=== PATIENT | male | born 1955 | race Caucasian/White ===

== ENCOUNTER 2017-01-17 09:07 | Day surgery (SDC) | payer OTHER ==
[2017-01-10 09:53] LABS: ABSOLUTE EOSINOPHILS # (AUTO) 0.1 10^3/uL (0.0-0.6); ABSOLUTE MONOCYTES (AUTO) 0.6 10^3/uL (0.1-1.4); ABSOLUTE NEUT (AUTO) 3.6 10^3/uL (1.7-8.2); BASOPHILS % (AUTO) 0.7 % (0-2); EOSINOPHILS % (AUTO) 2.3 % (0-6); HEMATOCRIT 35.3 % (37.9-51.0); HEMOGLOBIN 12.2 g/dL (13.5-17.0); HGB HCT DIFFERENCE 1.3; MEAN CORPUSCULAR HEMOGLOBIN 32.1 pg (27.0-33.4); MEAN CORPUSCULAR HGB CONC 34.5 g/dL (32.0-36.0); MEAN CORPUSCULAR VOLUME 93 fl (80-97); MONOCYTES % (AUTO) 11.4 % (3-13); SEGMENTED NEUTROPHILS % (AUTO) 67.6 % (42-78); WHITE BLOOD COUNT 5.4 10^3/uL (4.0-10.5)
[2017-01-10 10:20] LABS: APPEARANCE,URINE SLIGHTLY-CLOUDY; BILIRUBIN,URINE NEGATIVE (NEGATIVE); GLUCOSE, URINE NEGATIVE (NEGATIVE); KETONES,URINE NEGATIVE (NEGATIVE); LEUKOCYTE ESTERASE,URINE TRACE (NEGATIVE); NITRITE,URINE NEGATIVE (NEGATIVE); PROTEIN,URINE NEGATIVE (NEGATIVE); URINE SPECIFIC GRAVITY 1.006; UROBILINOGEN,URINE NEGATIVE mg/dL (<2.0)
[2017-01-10 10:21] LABS: ANION GAP 12 (5-19); BLOOD UREA NITROGEN 4 mg/dL (7-20); CALCIUM 9.4 mg/dL (8.4-10.2); CARBON DIOXIDE 26 mmol/L (22-30); CHLORIDE 89 mmol/L (98-107); CREATININE RESULT 0.62 mg/dL (0.52-1.25); GLUCOSE 80 mg/dL (75-110); POTASSIUM 4.2 mmol/L (3.6-5.0); SODIUM 126.6 mmol/L (137-145)
--- NOTE | 2017-01-10 10:26 | EKG REPORT ---
SEVERITY:- BORDERLINE ECG - SINUS RHYTHM BORDERLINE RIGHT AXIS DEVIATION BORDERLINE INFERIOR Q WAVES BORDERLINE PROLONGED QT INTERVAL BLOCKED APC : Confirmed by: Tri Boudreaux 10-Jan-2017 10:26:17
--- NOTE | 2017-01-10 10:37 | RADIOLOGY REPORT (SQ) ---
EXAM DESCRIPTION: CHEST PA/LATERAL COMPLETED DATE/TIME: 01/10/2017 9:50 am REASON FOR STUDY: PRE-OP COMPARISON: 04/05/2015 EXAM PARAMETERS: NUMBER OF VIEWS: two views TECHNIQUE: Digital Frontal and Lateral radiographic views of the chest acquired. RADIATION DOSE: NA LIMITATIONS: none FINDINGS: LUNGS AND PLEURA: The lungs are hyperexpanded. There are no pulmonary infiltrates or pleu ral effusions. No mass is seen. MEDIASTINUM AND HILAR STRUCTURES: No masses or contour abnormalities. HEART AND VASCULAR STRUCTURES: Heart normal size. No evidence for failure. BONES: No acute findings. HARDWARE: None in the chest. OTHER: No other significant finding. IMPRESSION: Chronic lung changes with no acute cardiopulmonary disease. TECHNICAL DOCUMENTATION: JOB ID: [id number] [employer]- All Rights Reserved
[~2017-01-17 09:07] MED LIST: CEFAZOLIN 2 GM/D5W RTU 2 GM/50 ML RTUPB IV PRN; LIDOCAINE 0.5% INJ-PF (5 MG/ML) 50 ML SDV INJ PRN; RINGERS SOLUTION,LACTATED 1,000 ML IV PRN
[2017-01-17] MEDS ORDERED: GLYCOPYRROLATE INJ 0.4 MG/2 ML VIAL ONE (09:11)
[2017-01-17] MEDS ORDERED: DEXAMETHASONE SOD PHOSPHATE INJ 4 MG/1 ML VIAL ONE (09:11)
[2017-01-17] MEDS ORDERED: METOCLOPRAMIDE HCL INJ/PF 10 MG/2 ML SDV ONE (09:11)
[2017-01-17] MEDS ORDERED: ONDANSETRON HCL INJ/PF 4 MG/2 ML SDV ONE (09:11)
[2017-01-17] MEDS ORDERED: FENTANYL CITRATE INJ/PF 100 MCG/2 ML AMPUL ONE (10:41)
[2017-01-17] MEDS ORDERED: MIDAZOLAM 2 MG/2 ML INJ ONE (10:41)
[2017-01-17] MEDS ORDERED: ALBUTEROL SULFATE HFA (90 MCG/PUFF) 200 PUFF/8.5 GM MDI IH ONE (10:41)
[2017-01-17] MEDS ORDERED: HYDROMORPHONE HCL INJ/PF 2 MG/ML AMPULE ONE (10:42)
[2017-01-17] MEDS ORDERED: PROPOFOL INJ 200 MG/20 ML VIAL IV ONE (10:42)
[2017-01-17] MEDS ORDERED: ACETAMINOPHEN 100 ML IV ONE (10:43)
[2017-01-17] MEDS ORDERED: MORPHINE SULFATE 10 MG/ML INJ IV PRN (11:53)
[2017-01-17] MEDS ORDERED: DIPHENHYDRAMINE HCL 50 MG/ML VIAL IV PRN (11:53)
[2017-01-17] MEDS ORDERED: PROMETHAZINE HCL INJ 25 MG/1 ML VIAL IV PRN ×2 (11:53)
[2017-01-17] MEDS ORDERED: MEPERIDINE HCL/PF INJ 25 MG/1 ML DISP.SYRIN IV PRN (11:53)
[2017-01-17] MEDS ORDERED: FENTANYL CITRATE INJ/PF 100 MCG/2 ML AMPUL IV PRN ×3 (11:53)
[2017-01-17] MEDS ORDERED: OXYCODONE-ACETAMINOPHEN 5-325 MG TABLET PO PRN ×2 (11:53)
--- NOTE | 2017-01-17 13:05 | Operative Report ---
Operative Report DATE OF SURGERY: 01/17/17 PREOPERATIVE DIAGNOSIS: Posttraumatic left ankle arthritis OPERATION: Hardware removal. Left pantalar fusion SURGEON: SHAUN SAUNDERS 1ST LOOM STOP CHECKER: LU RODRIGUEZ ANESTHESIA: GA TISSUE REMOVED OR ALTERED: Cultures to microbiology. Bone to pathology. Implants to patient ESTIMATED BLOOD LOSS: Minimal PROCEDURE: With the patient's finding of the operating room table the left lower extremities prepped and draped in sterile fashion. Limb was elevated for exsanguination tourniquet inflated to 350 torr. A longitudinal incision is made over the distal fibula. Sharp dissection was carried incision down to the subperiosteal region. The underlying plate is identified and removed along with 5 screws. A distal fibular osteotomy was performed and this is reflected posteriorly. This reveals the underlying tibiotalar joint. This is resected using oscillating saw. The joint is distracted with lamina spreaders and the corresponding surfaces inspected for alignment as well as congruity. Subsequently a pin is placed through the plantar surface the foot through the talus and into the distal tibia. The distal tibia was then reamed to 11.5 mm. Subsequently a [email or web address] pantalar fusion nail 11 x 150 mm was advanced over the guide chapo. The guide chapo is removed. A talar locking screw was placed followed by 2 distal tibia screws. The tibiotalar joint is then compressed through the end of the nail. Subsequently to calcaneal screw screws were placed one posteriorly and one laterally. At this point the decision was made about the distal fibula. Normally I would use this as an onlay graft and this point because of the poor condition of the bone I felt it was probably better excised. The distal fibula was excised. The tourniquet was deflated. The wound was Secured with bulb lavage. Wound is then closed in layers using interrupted Vicryl followed by nylon. A sterile compressive dressing followed by posterior splint were applied and the patient's return to the PACU in satisfactory condition.
[2017-01-17] MEDS: FENTANYL CITRATE INJ/PF 100 MCG/2 ML AMPUL ONE ×2 (13:22→13:27)
[2017-01-17] MEDS ORDERED: RINGERS SOLUTION,LACTATED 1,000 ML IV PRN (13:30)
[2017-01-17] MEDS: MORPHINE SULFATE 10 MG/ML INJ ONE ×3 (13:33→13:47)
[2017-01-17] MEDS ORDERED: ONDANSETRON 4 MG TAB.RAPDIS SL PRN (13:37)
[2017-01-17] MEDS ORDERED: ZOLPIDEM TARTRATE 5 MG TABLET PO PRN (13:38)
[2017-01-17] MEDS ORDERED: CEFAZOLIN 1 GM/D5W RTU 1 GM/50 ML RTUPB IV SCH (14:00)
[2017-01-17] MEDS ORDERED: TIOTROPIUM BROMIDE DPI 5 CAP/KIT (18 MCG/CAP) IH PRN (14:56)
[2017-01-17] MEDS: CEFAZOLIN 2 GM/D5W RTU 2 GM/50 ML RTUPB IV SCH (18:35)
[2017-01-17] MEDS: OXYCODONE HCL IR 5 MG TABLET PO PRN ×2 (18:37→23:53)
[2017-01-17] MEDS: MORPHINE SULFATE 10 MG/ML INJ IV PRN (22:14)
[2017-01-18] MEDS: CEFAZOLIN 2 GM/D5W RTU 2 GM/50 ML RTUPB IV SCH (01:20)
[2017-01-18] MEDS: MORPHINE SULFATE 10 MG/ML INJ IV PRN (01:20)
[2017-01-18] MEDS: OXYCODONE HCL IR 5 MG TABLET PO PRN (05:53)
--- NOTE | 2017-01-18 07:18 | PDOC DISCHARGE SUMMARY ---
General - Admit/Disc Date/PCP Discharge Date: 01/18/17 - Discharge Diagnosis (1) Arthritis of left ankle Is this a current diagnosis for this admission?: Yes - Additional Information Discharge Diet: As Tolerated, Regular Discharge Activity: Balance Activity w/Rest, Other - Touchdown weightbearing restriction left lower extremity Home Medications: Ibuprofen [Motrin 400 mg Tablet] 400 mg PO PRN PRN 01/10/17 Tiotropium [place] [Spiriva Handihaler 18 mcg/dose (30 Dose)] 18 mcg IH PRN PRN 01/10/17 Oxycodone HCl [Oxy-Ir 5 mg Tablet] 5 mg PO Q6HP PRN tablet 01/18/17 History of Present Illness History of Present Illness: KAYLEE DIANA is a 61 year old male status post an open reduction internal fixation of a bimalleolar left ankle fracture in the distant past now with progressive pain and functional disability. Patient admitted for a left ankle arthrodesis. Hospital Course Hospital Course: Patient is admitted through the operating room for 23 hour outpatient observation. He undergoes uncomplicated left ankle arthrodesis. Is returned to the floor in satisfactory condition. He spends the night in the hospital for pain control and is subsequently for discharge home on a touchdown weightbearing restriction on the left lower extremity. Physical Exam Vital Signs: Temp Pulse Resp BP Pulse Ox 36.8 C 84 16 166/79 H 99 01/18/17 03:46 01/18/17 03:46 01/18/17 03:46 01/18/17 03:46 01/18/17 03:46 Intake & Output 01/17/17 01/18/17 01/19/17 06:59 06:59 06:59 Intake Total 2225 Output Total 450 Balance 1775 Weight 68.4 kg General appearance: PRESENT: no acute distress Head exam: PRESENT: normocephalic Respiratory exam: PRESENT: unlabored Cardiovascular exam: PRESENT: RRR Vascular exam: PRESENT: normal capillary refill GI/Abdominal exam: PRESENT: soft Rectal exam: PRESENT: deferred Extremities exam: PRESENT: other - Left lower extremity immobilized in a posterior splint. Small amount of bloody drainage from the back of the splint which is dry this morning. Neurological exam: PRESENT: alert, awake, oriented to person, oriented to place , oriented to time, oriented to situation. ABSENT: motor sensory deficit Psychiatric exam: PRESENT: appropriate affect, normal mood. ABSENT: homicidal ideation, suicidal ideation Skin exam: PRESENT: dry, intact, warm. ABSENT: cyanosis, rash Results Laboratory Results: 01/10/17 08:45 01/10/17 08:45 Impressions: Chest X-Ray 01/10/17 09:45 IMPRESSION: Chronic lung changes with no acute cardiopulmonary disease. Status: Imported from PACS Plan Discharge Plan: 61-year-old white male status post left ankle arthrodesis with an unknown eventful postoperative course. He is can maintain a touchdown weightbearing restriction return to see Dr. Hong in the [facility] for surgery in 2 weeks for splint removal and suture removal.
[2017-01-18 09:30] VITALS: BP 105/86
[2017-01-18] MEDS ORDERED: TIOTROPIUM BROMIDE DPI 5 CAP/KIT (18 MCG/CAP) IH SCH (10:00)
--- NOTE | 2017-01-19 02:11 | RADIOLOGY REPORT (SQ) ---
EXAM DESCRIPTION: NO CHG FLUORO; ANKLE LEFT AP/LATERAL COMPLETED DATE/TIME: 01/17/2017 2:14 pm REASON FOR STUDY: LEFT ANKLE FUSION ASSISTED WITH FLUORO IN OR COMPARISON: 07/29/2012 FLUOROSCOPY TIME: 0.8 minutes 10 Images saved to PACS RADIATION DOSE: 3.59 mGy LIMITATIONS: None. PROCEDURE: Ankle fusion. FINDINGS: Images obtained from fluoro document the placement of a rind through the calcaneus and joshua us into distal tibia. The tibial talar articular surfaces have been debrided. 3 screws are present in the medial malleolus apparently from a prior injury. IMPRESSION: Left ankle fusion. COMMENT: PQRS 6045F: Fluoroscopy time of the procedure is documented in the report. TECHNICAL DOCUMENTATION: JOB ID: [id number] [employer] All Rights Reserved
--- NOTE | 2017-01-19 02:11 | RADIOLOGY REPORT (SQ) ---
EXAM DESCRIPTION: NO CHG FLUORO; ANKLE LEFT AP/LATERAL COMPLETED DATE/TIME: 01/17/2017 2:14 pm REASON FOR STUDY: LEFT ANKLE FUSION ASSISTED WITH FLUORO IN OR COMPARISON: 07/29/2012 FLUOROSCOPY TIME: 0.8 minutes 10 Images saved to PACS RADIATION DOSE: 3.59 mGy LIMITATIONS: None. PROCEDURE: Ankle fusion. FINDINGS: Images obtained from fluoro document the placement of a rind through the calcaneus and joshua us into distal tibia. The tibial talar articular surfaces have been debrided. 3 screws are present in the medial malleolus apparently from a prior injury. IMPRESSION: Left ankle fusion. COMMENT: PQRS 6045F: Fluoroscopy time of the procedure is documented in the report. TECHNICAL DOCUMENTATION: JOB ID: [id number] [employer]- All Rights Reserved
--- NOTE | 2017-01-24 09:11 | PDOC H&P ---
History of Present Illness Admission Date/PCP: 01/17/2017 Patient complains of: Left ankle pain History of Present Illness: Patient is a 7-year-old white male who is status post a open reduction internal fixation of a left ankle fracture in the past now with progressive posttraumatic arthrosis. Patient admitted for elective left ankle arthrodesis Past Medical History Cardiac Medical History: Denies: Coronary Artery Disease, Myocardial Infarction, Hypertension Pulmonary Medical History: Denies: Asthma, Bronchitis, Chronic Obstructive Pulmonary Disease (COPD), Pneumonia Neurological Medical History: Denies: Seizures Musculoskeltal Medical History: Reports: Arthritis Hematology: Denies: Anemia Past Surgical History Past Surgical History: Reports: Orthopedic Surgery - L ANKLE Social History Smoking Status: Current Every Day Smoker Frequency of Alcohol Use: Heavy Family History Family History: Reviewed & Not Pertinent Parental Family History Reviewed: No Children Family History Reviewed: No Sibling(s) Family History Reviewed.: No Medication/Allergy Home Medications: Ibuprofen [Motrin 400 mg Tablet] 400 mg PO PRN PRN 01/10/17 Tiotropium [place] [Spiriva Handihaler 18 mcg/dose (30 Dose)] 18 mcg IH PRN PRN 01/10/17 Oxycodone HCl [Oxy-Ir 5 mg Tablet] 5 mg PO Q6HP PRN tablet 01/18/17 Allergies/Adverse Reactions: No Known Allergies Allergy (Verified 01/10/17 09:37) Review of Systems All systems: as per PMH Physical Exam Vital Signs: Temp Pulse Resp BP Pulse Ox 36.8 C 82 22 H 105/86 H 100 01/18/17 09:25 01/18/17 09:25 01/18/17 09:25 01/18/17 09:25 01/18/17 09:25 General appearance: PRESENT: no acute distress Head exam: PRESENT: normocephalic Eye exam: PRESENT: EOMI Respiratory exam: PRESENT: unlabored Cardiovascular exam: PRESENT: RRR Pulses: PRESENT: +1 pedal pulses bilateral Vascular exam: PRESENT: normal capillary refill GI/Abdominal exam: PRESENT: soft Rectal exam: PRESENT: deferred Extremities exam: PRESENT: other - Well-healed medial and lateral surgical incisions over the left ankle. There is an overall valgus inclination. Minimal tibiotalar motion. Distal neurovascular examination is intact. There is brisk capillary refill. Neurological exam: PRESENT: alert, awake, oriented to person, oriented to place , oriented to time, oriented to situation. ABSENT: motor sensory deficit Psychiatric exam: PRESENT: appropriate affect, normal mood. ABSENT: homicidal ideation, suicidal ideation Skin exam: PRESENT: dry, intact, warm. ABSENT: cyanosis, rash Results Laboratory Results: 01/10/17 08:45 01/10/17 08:45 Impressions: Chest X-Ray 01/10/17 09:45 IMPRESSION: Chronic lung changes with no acute cardiopulmonary disease. Ankle X-Ray 01/17/17 00:00 IMPRESSION: Left ankle fusion. Fluoroscopy 01/17/17 00:00 IMPRESSION: Left ankle fusion. Status: Imported from PACS Assessment & Plan - Diagnosis (1) Arthritis of left ankle Is this a current diagnosis for this admission?: Yes Plan: 61-year-old white male with a posttraumatic ankle arthrosis. Plan for pantalar arthrodesis under choice anesthesia. - Time Time Spent: 50 to 70 Minutes Anticipated discharge: Home with Homehealth Within: within 24 hours
== END 2017-01-18 09:50 | disposition home or self-care (01) ==
LOC: OROUT 09:07 → 4S 14:44 → OROUT 01-18 09:50
PROVIDERS: ATTEND Orthopaedic Surgery
PROC: 0SGG04Z Fusion of Left Ankle Joint with Internal Fixation Device, Open Approach (ICD-10-PCS; principal; 2017-01-17 10:30)
DX: M19.079 Primary osteoarthritis, unspecified ankle and foot (principal); J44.9 Chronic obstructive pulmonary disease, unspecified; M19.90 Unspecified osteoarthritis, unspecified site; F17.210 Nicotine dependence, cigarettes, uncomplicated; Z79.51 Long term (current) use of inhaled steroids; Z79.1 Long term (current) use of non-steroidal anti-inflammatories (NSAID)
CPT/HCPCS: 93005; 36415; 87070; 87205; 85025; 87075; 80048; 81001; 73600; 71020; 93010; 97530; 97116; 97163; 28705; C1713; J2250; J1100; J3010; J2765; J2270 ×2; J1170; J2405; J7120; J2704; J0690 ×2; J0131; 01480; J3490

== ENCOUNTER → 2017-02-22 | Outpatient (CLI) | payer OTHER ==
[2017-02-22 12:25] LABS: ABSOLUTE BASOPHILS # (AUTO) 0.1 10^3/uL (0.0-0.2); ABSOLUTE EOSINOPHILS # (AUTO) 0.2 10^3/uL (0.0-0.6); ABSOLUTE LYMPHOCYTES (AUTO) 1.4 10^3/uL (0.5-4.7); ABSOLUTE MONOCYTES (AUTO) 0.9 10^3/uL (0.1-1.4); ABSOLUTE NEUT (AUTO) 5.7 10^3/uL (1.7-8.2); BASOPHILS % (AUTO) 0.6 % (0-2); EOSINOPHILS % (AUTO) 2.7 % (0-6); HEMATOCRIT 33.2 % (37.9-51.0); HEMOGLOBIN 11.3 g/dL (13.5-17.0); HGB HCT DIFFERENCE 0.7; LYMPHOCYTES % (AUTO) 16.8 % (13-45); MEAN CORPUSCULAR HEMOGLOBIN 30.8 pg (27.0-33.4); MEAN CORPUSCULAR HGB CONC 34.1 g/dL (32.0-36.0); MEAN CORPUSCULAR VOLUME 90 fl (80-97); MONOCYTES % (AUTO) 10.5 % (3-13); RED BLOOD COUNT 3.68 10^6/uL (4.35-5.55); RED CELL DISTRIBUTION WIDTH 13.5 % (11.5-14.0); SEGMENTED NEUTROPHILS % (AUTO) 69.4 % (42-78); WHITE BLOOD COUNT 8.2 10^3/uL (4.0-10.5)
[2017-02-22 12:44] LABS: ANION GAP 12 (5-19); BLOOD UREA NITROGEN 6 mg/dL (7-20); CALCIUM 9.6 mg/dL (8.4-10.2); CARBON DIOXIDE 25 mmol/L (22-30); CHLORIDE 90 mmol/L (98-107); CREATININE RESULT 0.56 mg/dL (0.52-1.25); GLUCOSE 84 mg/dL (75-110); POTASSIUM 4.5 mmol/L (3.6-5.0); SODIUM 127.3 mmol/L (137-145)
[2017-02-22 13:05] LABS: ERYTHROCYTE SEDIMENTATION RATE 34 mm/hr (0-20)
== END ==
LOC: OD 11:25
PROVIDERS: ATTEND Orthopaedic Surgery
DX: T81.4XXD Infection following a procedure, subsequent encounter (principal)
CPT/HCPCS: 36415; 80048; 85025; 85652; 86140

== ENCOUNTER → 2017-04-16 | Outpatient (CLI) | payer OTHER ==
--- NOTE | 2017-04-16 12:36 | RADIOLOGY REPORT (SQ) ---
EXAM DESCRIPTION: ANKLE LEFT COMPLETE COMPLETED DATE/TIME: 04/16/2017 12:00 pm REASON FOR STUDY: NON-PRESSURE CHRONIC ULCER OF LEFT ANKLE W FAT LAYER EXPOSED (L97.322) L97.322 NO N-PRESSURE CHRONIC ULCER OF LEFT ANKLE W FAT LAYER COMPARISON: 01/17/2017 NUMBER OF VIEWS: Three views. TECHNIQUE: AP, lateral, and oblique radiographic images acquired of the left ankle. LIMITATIONS: None. FINDINGS: MINERALIZATION: Osteopenia. BONES: There is irregularity in the lateral aspect of the distal tibia just above the joint. JOINTS: Arthrodesis with medullary chapo extending from the tibia through the talus and the calcaneus SOFT TISSUES: No soft tissue swelling. No foreign body. OTHER: No other significant finding. IMPRESSION: Arthrodesis. Cannot exclude osteomyelitis from the distal tibia laterally. TECHNICAL DOCUMENTATION: JOB ID: [id number] [employer]- All Rights Reserved
--- NOTE | 2017-04-16 15:39 | XCELERA REPORT ---
[address] [address] Lower Extremity Arterial Evaluation Name: KAYLEE DIANA Age: 61 yrs Gender: Male : 1955 Patient Status: Outpatient Patient Location: Study Date: 04/16/2017 10:07 AM Procedure: A color flow and duplex scan of the lower extremity arteries was performed bilaterally with velocity and waveform anaylsis. Ankle brachial indicies performed. Reason For Study: ULCER Ordering Physician: KATERYNA MILLER Performed By: Lesli Pagan Measurements and Calculations Right Left SUPPLY CHAIN INTERN PSV 204.3 65.5 cm/sec Prox PFA PSV -199.9 -51.1 cm/sec Prox SFA PSV -247.5 -45.2 cm/sec Mid SFA PSV -97.8 -82.1 cm/sec Dist SFA PSV -31.0 -86.4 cm/sec Prox Pop A PSV 67.9 75.0 cm/sec Dist FIDENCIO PSV 38.1 32.6 cm/sec Dist MAIL COURIER PSV 57.5 41.3 cm/sec Rubens Pedis PSV 29.5 17.7 cm/sec Right Side Arterial Evaluation Normal velocity and triphasic waveforms noted in the Common Femoral artery. Monophasic with distally worsening, though fairly well maintained amplitude . 50-99 % stenosis at the Femoral artery. Ankle Brachial index is 0.7. Left Side Arterial Evaluation Normal velocity and biphasic waveforms noted in the Common Femoral artery. Monophasic with distally worsening, with poor amplitude . 50-99 % stenosis at the Femoral artery. Ankle Brachial index is 0.4. Interpretation Summary Severe hemodynamically significant lesions in the bilateral lower extremities, on duplex imaging, at rest. Difference in MARLENE's accurately indicate worse findings on the left , suggestive of worse vascularity. : KATERYNA MILLER > David Delgado
== END ==
LOC: SP 09:49
PROVIDERS: ATTEND Nurse Practitioner Family
DX: L97.322 Non-pressure chronic ulcer of left ankle with fat layer exposed (principal)
CPT/HCPCS: 93925

== ENCOUNTER → 2017-04-16 | Outpatient (CLI) | payer OTHER ==
[2017-04-16 11:14] LABS: ABSOLUTE EOSINOPHILS # (AUTO) 0.1 10^3/uL (0.0-0.6); ABSOLUTE LYMPHOCYTES (AUTO) 1.1 10^3/uL (0.5-4.7); ABSOLUTE MONOCYTES (AUTO) 0.9 10^3/uL (0.1-1.4); ABSOLUTE NEUT (AUTO) 5.9 10^3/uL (1.7-8.2); BASOPHILS % (AUTO) 0.4 % (0-2); EOSINOPHILS % (AUTO) 1.6 % (0-6); HEMATOCRIT 31.9 % (37.9-51.0); HEMOGLOBIN 10.8 g/dL (13.5-17.0); HGB HCT DIFFERENCE 0.5; LYMPHOCYTES % (AUTO) 13.4 % (13-45); MEAN CORPUSCULAR VOLUME 85 fl (80-97); MONOCYTES % (AUTO) 11.3 % (3-13); RED BLOOD COUNT 3.73 10^6/uL (4.35-5.55); RED CELL DISTRIBUTION WIDTH 14.7 % (11.5-14.0); SEGMENTED NEUTROPHILS % (AUTO) 73.3 % (42-78)
[2017-04-16 11:54] LABS: ERYTHROCYTE SEDIMENTATION RATE 54 mm/hr (0-20)
[2017-04-16 11:56] LABS: ALANINE AMINOTRANSFERASE 22 U/L (21-72); ALKALINE PHOSPHATASE 124 U/L (38-126); ANION GAP 11 (5-19); ASPARTATE AMINO TRANSFERASE 29 U/L (17-59); BILIRUBIN,DIRECT 0.3 mg/dL (0.0-0.4); BILIRUBIN,TOTAL 0.4 mg/dL (0.2-1.3); BLOOD UREA NITROGEN 6 mg/dL (7-20); C-REACTIVE PROTEIN 11.5 mg/L (<10.0); CALCIUM 9.3 mg/dL (8.4-10.2); CARBON DIOXIDE 26 mmol/L (22-30); CHLORIDE 90 mmol/L (98-107); CREATININE RESULT 0.59 mg/dL (0.52-1.25); GLUCOSE 85 mg/dL (75-110); SODIUM 127.3 mmol/L (137-145); TOTAL PROTEIN 7.5 g/dL (6.3-8.2)
== END ==
LOC: LAB 10:57
PROVIDERS: ATTEND Nurse Practitioner Family
DX: L97.322 Non-pressure chronic ulcer of left ankle with fat layer exposed (principal)
CPT/HCPCS: 36415; 80053; 85025; 85652; 86140

== ENCOUNTER → 2017-04-19 | Outpatient (CLI) | payer OTHER ==
--- NOTE | 2017-04-19 15:48 | RADIOLOGY REPORT (SQ) ---
EXAM DESCRIPTION: NM 3 PHASE BONE SCAN COMPLETED DATE/TIME: 04/19/2017 2:44 pm REASON FOR STUDY: L97.322 NON-PRESSURE CHRONIC ULCER OF LEFT ANKLE W FAT LAYER EXPOSED L97.322 NON- PRESSURE CHRONIC ULCER OF LEFT ANKLE W FAT LAYER COMPARISON: Left ankle films 04/16/2017 ORIF fluoroscopy 01/17/2017 RADIONUCLIDE AND DOSE: 20.3 millicuries Tc99m MDP. The route of agent administration: Intravenous. ADDITIONAL DRUGS AND DOSES: None. TECHNIQUE: Following injection of the radiopharmaceutical, serial blood flow images acquired. Equil ibrium blood pool images then acquired. Routine delayed images at 3 hours acquired of the areas of c linical concern with additional focused images as needed. AREA OF INTEREST: Left ankle LIMITATIONS: None. FINDINGS: VASCULAR FLOW IMAGES: Asymmetric increased flow to the left ankle BLOOD POOL IMAGES: Increased asymmetric activity on blood pool images of the left ankle particularly along the distal tibia metaphysis BONES: On the delayed images, there is a bandlike area of increased activity along the distal tibia a t the tibiotalar joint, extending throughout the distal tibial metaphysis. This area is positive for uptake on all 3 phases and is worrisome for osteomyelitis. Delayed images also show markedly increased uptake in the left. Accompanying plain films demonstrate lucency along the calcaneal screw and fusion hardware across the tibiotalar and subtalar joints. Th is calcaneal activity is worrisome for either calcaneal hardware loosening or infection. IMPRESSION: Bone scan is positive on all 3 phases over the distal tibia at the tibiotalar joint and distal tibial metaphysis. This correlates with a large lateral soft tissue ankle ulcer and bony renae neralization with irregular periosteal new bone formation on plain films 04/16/2017. These findings are worrisome for infection Calcaneus is positive on the delayed images, there is lucency around the calcaneal screw and fusion h ardware across the tibiotalar and talocalcaneal joints. This finding is worrisome for loosening or i nfection. COMMENT: Quality measure 147: Current bone scan is compared with any available plain radiographs, p rior bone scans, and CT/MRI. TECHNICAL DOCUMENTATION: JOB ID: [id number]- All Rights Reserved
== END ==
LOC: RAD 11:14
PROVIDERS: ATTEND Nurse Practitioner Family
DX: L97.322 Non-pressure chronic ulcer of left ankle with fat layer exposed (principal)
CPT/HCPCS: 78315; A9561; Q9969

== ENCOUNTER → 2017-09-11 | Outpatient (CLI) | payer OTHER ==
--- NOTE | 2017-09-11 09:13 | RADIOLOGY REPORT (SQ) ---
EXAM DESCRIPTION: CT HEAD WITHOUT COMPLETED DATE/TIME: 09/11/2017 8:54 am REASON FOR STUDY: DIZZINESS AND GIDDINESS (R42) R42 DIZZINESS AND GIDDINESS COMPARISON: None. TECHNIQUE: Axial images acquired through the brain without intravenous contrast. Images reviewed wi th bone, brain and subdural windows. Additional sagittal and coronal reconstructions were generated. Images stored on PACS. All CT scanners at this facility use dose modulation, iterative reconstruction, and/or weight based d osing when appropriate to reduce radiation dose to as low as reasonably achievable (ALARA). [facility]: Dose Right [facility]: CareDose [facility]: Dose Right [facility]: Teradose 4D [facility]: Adap.tv RADIATION DOSE: CT Rad equipment meets quality standard of care and radiation dose reduction techniq ues were employed. CTDIvol: 48.6 mGy. DLP: 905 mGy-cm. mGy. LIMITATIONS: None. FINDINGS: VENTRICLES: Normal size and contour. CEREBRUM: No masses. No hemorrhage. No midline shift. No evidence for acute infarction. Normal gra y/white matter differentiation. No areas of low density in the white matter. CEREBELLUM: No masses. No hemorrhage. No alteration of density. No evidence for acute infarction. EXTRAAXIAL SPACES: No fluid collections. No masses. ORBITS AND GLOBE: No intra- or extraconal masses. Normal contour of globe without masses. CALVARIUM: No fracture. PARANASAL SINUSES: No fluid or mucosal thickening. SOFT TISSUES: No mass or hematoma. OTHER: No other significant finding. IMPRESSION: NORMAL BRAIN CT WITHOUT CONTRAST. EVIDENCE OF ACUTE STROKE: No COMMENT: Quality ID # 436: Final reports with documentation of one or more dose reduction techniques (e.g., Automated exposure control, adjustment of the mA and/or kV according to patient size, use of iterative reconstruction technique) TECHNICAL DOCUMENTATION: JOB ID: [id number] [employer]- All Rights Reserved Reading location - IP/workstation name: [email or web address]
== END ==
LOC: RAD 08:33
PROVIDERS: ATTEND Family Medicine Geriatric Medicine
DX: R42 Dizziness and giddiness (principal)
CPT/HCPCS: 70450

== ENCOUNTER → 2017-09-13 | Outpatient (CLI) | payer OTHER ==
--- NOTE | 2017-09-13 10:51 | RADIOLOGY REPORT (SQ) ---
EXAM DESCRIPTION: CAROTID DOPPLER COMPLETED DATE/TIME: 09/13/2017 10:20 am REASON FOR STUDY: DIZZINESS R42 DIZZINESS AND GIDDINESS COMPARISON: None. TECHNIQUE: Grayscale ultrasound, Doppler velocity and spectra, and color Doppler images acquired of the extra-cranial carotid and vertebral arteries. Images stored on PACS. LIMITATIONS: None. FINDINGS: RIGHT CAROTID CCA Velocities: Within normal limits. ICA Velocities Peak systolic 1.02 m/s. End diastolic 0.4 m/s. Proximal ICA/CCA peak systolic ratio 0.7. Spectra normal. No significant plaque. LEFT CAROTID CCA Velocities: Within normal limits. ICA Velocities Peak systolic 1.91 m/s. End diastolic 0.67 m/s. Proximal ICA/CCA peak systolic ratio 1.5. Posterior shadowing atherosclerotic plaquing is identified. There is tortuosity of the internal gan tid artery. VERTEBRAL ARTERIES: Antegrade flow. Normal waveforms. SUBCLAVIAN ARTERIES: No finding. OTHER: No other significant finding. IMPRESSION: There is increased flow velocity in the left internal carotid artery with a normal cc ra parker. The appearance is felt to be related to the tortuosity of the vessel rather than significant st enosis. No hemodynamically significant stenoses are identified. COMMENT: Quality ID #195: Velocity criteria are extrapolated from the diameter data as defined by t he Society of Radiologists in Ultrasound Consensus Conference. Radiology 2003: 229; 340-346. TECHNICAL DOCUMENTATION: JOB ID: [id number] [employer]- All Rights Reserved Reading location - IP/workstation name: [facility]
== END ==
LOC: SP 08:53
PROVIDERS: ATTEND Family Medicine Geriatric Medicine
DX: R42 Dizziness and giddiness (principal)
CPT/HCPCS: 93880

== ENCOUNTER → 2018-01-17 | Outpatient (CLI) | payer OTHER ==
[2018-01-17 10:05] LABS: ALANINE AMINOTRANSFERASE 15 U/L (21-72); ALBUMIN 3.6 g/dL (3.5-5.0); ALKALINE PHOSPHATASE 95 U/L (38-126); ANION GAP 10 (5-19); ASPARTATE AMINO TRANSFERASE 34 U/L (17-59); BILIRUBIN,DIRECT 0.3 mg/dL (0.0-0.4); BILIRUBIN,TOTAL 0.5 mg/dL (0.2-1.3); BLOOD UREA NITROGEN 7 mg/dL (7-20); CALCIUM 8.9 mg/dL (8.4-10.2); CARBON DIOXIDE 23 mmol/L (22-30); CHLORIDE 99 mmol/L (98-107); CHOLESTEROL 147.92 mg/dL (0-200); GLUCOSE 82 mg/dL (75-110); POTASSIUM 4.4 mmol/L (3.6-5.0); SODIUM 132.1 mmol/L (137-145); TOTAL PROTEIN 7.4 g/dL (6.3-8.2); TRIGLYCERIDES 53 mg/dL (<150)
[2018-01-17 10:15] LABS: DIRECT LDL 63 mg/dL (<100)
[2018-01-17 10:31] LABS: HEMATOCRIT 23.6 % (37.9-51.0); MEAN CORPUSCULAR HGB CONC 31.6 g/dL (32.0-36.0); MEAN CORPUSCULAR VOLUME 66 fl (80-97); PLATELET COUNT 457 10^3/uL (150-450); RED BLOOD COUNT 3.56 10^6/uL (4.35-5.55); RED CELL DISTRIBUTION WIDTH 20.3 % (11.5-14.0)
[2018-01-17 10:44] LABS: HEMOGLOBIN 7.5 g/dL (13.5-17.0)
[2018-01-17 10:59] LABS: ABSOLUTE LYMPHOCYTES# (MANUAL) 1.3 10^3/uL (0.5-4.7); ABSOLUTE MONOCYTES # (MANUAL) 0.6 10^3/uL (0.1-1.4); ABSOLUTE NEUTROPHILS# (MANUAL) 3.7 10^3/uL (1.7-8.2); BAND NEUTROPHILS % (MANUAL) 1 % (3-5); BASOPHILS % (MANUAL) 1 % (0-2); EOSINOPHILS % (MANUAL) 5 % (0-6); LYMPHOCYTES % (MANUAL) 22 % (13-45); MONOCYTES % (MANUAL) 10 % (3-13); SEGMENTED NEUTROPHILS % (MAN) 61 % (42-78); TOTAL CELLS COUNTED 100
[2018-01-17 11:02] LABS: ANISOCYTOSIS 2+; HYPOCHROMASIA 2+; OVALOCYTES 2+; PLATELET COMMENT ADEQUATE; POLYCHROMASIA 1+; ROULEAUX SLIGHT; TARGET CELLS SLIGHT
[2018-01-18 11:20] LABS: ABSOLUTE RETICS # 0.065 10^6/uL (0.028-0.122)
[2018-01-18 12:00] LABS: IRON(TIBC) 17.1 ug/dL (49-181)
[2018-01-18 12:08] LABS: FERRITIN 8.42 ng/mL (17.9-464.0)
== END ==
LOC: LAB 09:26
PROVIDERS: ATTEND Family Medicine Geriatric Medicine
DX: D50.8 Other iron deficiency anemias (principal); I73.9 Peripheral vascular disease, unspecified; R42 Dizziness and giddiness; Z29.9 Encounter for prophylactic measures, unspecified
CPT/HCPCS: 36415; 80053; 80061; 82728; 83540; 83550; 84443; 85025; 85045

== ENCOUNTER → 2019-04-02 | Outpatient (CLI) | payer OTHER ==
[2019-04-02 11:17] LABS: HEMATOCRIT 31.9 % (37.9-51.0); HEMOGLOBIN 10.4 g/dL (13.5-17.0); MEAN CORPUSCULAR HEMOGLOBIN 25.9 pg (27.0-33.4); MEAN CORPUSCULAR HGB CONC 32.6 g/dL (32.0-36.0); MEAN CORPUSCULAR VOLUME 79 fl (80-97); PLATELET COUNT 382 10^3/uL (150-450); RED BLOOD COUNT 4.02 10^6/uL (4.35-5.55); WHITE BLOOD COUNT 6.2 10^3/uL (4.0-10.5)
[2019-04-02 11:38] LABS: BLOOD UREA NITROGEN 5 mg/dL (7-20); CALCIUM 9.7 mg/dL (8.4-10.2); GLUCOSE 84 mg/dL (75-110)
[2019-04-02 11:39] LABS: ALBUMIN 4.5 g/dL (3.5-5.0); ALKALINE PHOSPHATASE 107 U/L (38-126); ANION GAP 10 (5-19); ASPARTATE AMINO TRANSFERASE 34 U/L (17-59); BILIRUBIN,DIRECT 0.2 mg/dL (0.0-0.4); BILIRUBIN,TOTAL 0.8 mg/dL (0.2-1.3); CARBON DIOXIDE 28 mmol/L (22-30); CHLORIDE 94 mmol/L (98-107); CHOLESTEROL 180.91 mg/dL (0-200); POTASSIUM 4.5 mmol/L (3.6-5.0); TOTAL PROTEIN 8.5 g/dL (6.3-8.2); TRIGLYCERIDES 57 mg/dL (<150)
[2019-04-02 11:49] LABS: DIRECT LDL 74 mg/dL (<100)
[2019-04-02 11:51] LABS: ABSOLUTE LYMPHOCYTES# (MANUAL) 0.8 10^3/uL (0.5-4.7); ABSOLUTE MONOCYTES # (MANUAL) 0.4 10^3/uL (0.1-1.4); BASOPHILS % (MANUAL) 0 % (0-2); EOSINOPHILS % (MANUAL) 0 % (0-6); LYMPHOCYTES % (MANUAL) 12 % (13-45); MONOCYTES % (MANUAL) 7 % (3-13); SEGMENTED NEUTROPHILS % (MAN) 80 % (42-78); TOTAL CELLS COUNTED 100
[2019-04-02 11:52] LABS: ANISOCYTOSIS 3+; HYPOCHROMASIA 1+; OVALOCYTES SLIGHT; PLATELET COMMENT ADEQUATE; POIKILOCYTOSIS SLIGHT
--- NOTE | 2019-04-02 12:41 | RADIOLOGY REPORT (SQ) ---
EXAM DESCRIPTION: U/S ABDOMEN LTD W/DOPPLER COMPLETED DATE/TIME: 04/02/2019 11:41 am REASON FOR STUDY: (R16.0) HEPATOMEGALY, NOT ELSEWHERE CLASSIFIED R09.89 OTH SYMPTOMS AND SIGNS INVO LVING THE CIRC AND RESP SY R16.0 HEPATOMEGALY, NOT ELSEWHERE CLASSIFIED COMPARISON: None. TECHNIQUE: Dynamic and static grayscale images acquired of the abdomen and recorded on PACS. Additio nal selected color Doppler and spectral images recorded. LIMITATIONS: None. FINDINGS: PANCREAS: No masses. Visualized pancreatic duct normal caliber. LIVER: Increased echogenicity with decreased visualization of the portal triads. Normal size. No fo arnulfo masses. LIVER VASCULATURE: Normal directional flow of the main portal vein and hepatic veins. GALLBLADDER: No stones. Normal wall thickness. No pericholecystic fluid. ULTRASOUND-DETECTED MARTINEZ'S SIGN: Negative. INTRAHEPATIC DUCTS AND COMMON DUCT: CBD measures up to 7 mm. No obstructing lesion identified. No i ntrahepatic ductal dilation. INFERIOR VENA CAVA: Normal flow. AORTA: No aneurysm in the visualized aspect. RIGHT KIDNEY: Normal size measuring 9.9 cm. Normal echogenicity. No solid or suspicious masses. No h ydronephrosis. No calcifications. PERITONEAL AND RIGHT PLEURAL SPACE: No ascites or effusions. OTHER: No other significant findings. IMPRESSION: 1. Hepatic steatosis. 2. Mildly enlarged CBD at 7 mm. No intrahepatic ductal dilation or obstructing lesion identified. Findings likely related to senescent change. If laboratory evidence of ductal obstruction MRCP could be considered for further characterization. TECHNICAL DOCUMENTATION: JOB ID: [id number] [employer]- All Rights Reserved Reading location - IP/workstation name: [email or web address]
--- NOTE | 2019-04-02 14:39 | RADIOLOGY REPORT (SQ) ---
EXAM DESCRIPTION: CAROTID DOPPLER COMPLETED DATE/TIME: 04/02/2019 2:09 pm REASON FOR STUDY: BRUIT R09.89 OTH SYMPTOMS AND SIGNS INVOLVING THE CIRC AND RESP SY R16.0 HEPATOM EGALY, NOT ELSEWHERE CLASSIFIED COMPARISON: 09/13/2017 TECHNIQUE: Grayscale ultrasound, Doppler velocity and spectra, and color Doppler images acquired of the extra-cranial carotid and vertebral arteries. Images stored on PACS. LIMITATIONS: None. FINDINGS: RIGHT CAROTID CCA Velocities: Within normal limits. ICA Velocities Peak systolic 82 cm/s. End diastolic 27 cm/s. Proximal ICA/CCA peak systolic ratio 0.98. Spectra normal. Intimal wall thickening. LEFT CAROTID CCA Velocities: Within normal limits. Shadowing calcified plaque. ICA Velocities Peak systolic 128 cm/s. End diastolic 38 cm/s. Proximal ICA/CCA peak systolic ratio1.3. Elevated velocity within the external carotid artery measuring 669 cm/s. Elevated velocity. Grayscale evaluation demonstrates approximately 50% luminal stenosis by heterogen eous plaque. VERTEBRAL ARTERIES: Antegrade flow. Normal waveforms. SUBCLAVIAN ARTERIES: No finding. OTHER: No other significant finding. IMPRESSION: 1. Elevated velocity within the left internal carotid artery suggestive of [address] to 69% [address] enosis. 2. No significant stenosis within the right internal carotid artery. 3. Significant elevated velocity within the left external carotid artery of 669 cm/s. COMMENT: Quality ID #195: Velocity criteria are extrapolated from the diameter data as defined by t he Society of Radiologists in Ultrasound Consensus Conference. Radiology 2003: 229; 340-346. TECHNICAL DOCUMENTATION: JOB ID: [id number] [employer]- All Rights Reserved Reading location - IP/workstation name: [email or web address]
[2019-04-03 07:37] LABS: HEPATITS B SURFACE ANTIGEN Negative (Negative)
[2019-04-03 08:18] LABS: HEPATITIS C VIRUS ANTIBODY <0.1 s/co ratio (0.0-0.9)
== END ==
LOC: SP 09:47
PROVIDERS: ATTEND Family Medicine Geriatric Medicine
DX: I65.22 Occlusion and stenosis of left carotid artery (principal); R16.0 Hepatomegaly, not elsewhere classified
CPT/HCPCS: 36415; 76705; 80053; 80061; 80074; 82977; 84443; 85025; 93880; 93976